=== PATIENT | female | born 1945 | race Caucasian/White ===

== ENCOUNTER 2024-10-13 11:18 | Observation (INO) | payer MEDICARE, SELFPAY ==
[2024-10-13] VITALS (16 sets, daily range): BP systolic 140–158; BP diastolic 61–76; PULSE 63–85; RESP 16–23; TEMP 36.4–36.7; O2SAT 96–98; BMI 24.9; BMI 24.0
--- NOTE | 2024-10-13 11:27 | PC.NURSE ---
Sent urine to the lab
[2024-10-13 11:33] LABS: Microscopic, Urine URINE MICROSCOPIC (MICROSCOPIC)
[2024-10-13 11:39] LABS: Appearance,Urine CLEAR (Clear); Bilirubin,Urine Negative (Negative); Blood, Urine Negative (Negative); Color,Urine YELLOW (Yellow); Glucose,Urine (UA) Negative (Negative); Ketones,Urine Negative (Negative); Leukocyte Esterase,Urine Negative (Negative); Nitrate,Urine Negative (Negative); PH,Urine 6.5 (5.0-8.5); Protein,Urine TRACE (Negative); Urobilinogen,Urine 0.2 EU/dl (0.2)
--- NOTE | 2024-10-13 11:42 | CT_ITS ---
PROCEDURE INFORMATION: Exam: CT Abdomen And Pelvis With Contrast Exam date and time: 10/13/2024 12:28 PM Age: 79 years old Clinical indication: Other: Severe llq pain TECHNIQUE: Imaging protocol: Computed tomography of the abdomen and pelvis with contrast. Radiation optimization: All CT scans at this facility use at least one of these dose optimization techniques: automated exposure control; mA and/or kV adjustment per patient size (includes targeted exams where dose is matched to clinical indication); or iterative reconstruction. Contrast material: ISOVUE; Contrast volume: 75 ml; Contrast route: IV; COMPARISON: No relevant prior studies available. FINDINGS: Lungs: Right lower lobe granuloma. Scattered atelectasis and scarring of the lung bases. Heart: See Vasculature finding. Coronary arteries: Heavy coronary calcified atherosclerotic disease. Liver: Normal. No mass. Gallbladder and biliary ducts: Status post cholecystectomy. Pancreas: Atrophy of the pancreas. Spleen: Normal. No splenomegaly. Adrenal glands: Nodular adrenal glands without definable mass. Kidneys and ureters: Mild thinning of the renal cortex bilaterally and diffusely. Benign bilateral renal cysts. Stomach and bowel: Long segment circumferential thickening of the distal ascending, transverse, descending colon. Inflammatory change of the pericolonic fat at the level of the distal ascending colon through the distal descending colon. Innumerable diverticula are noted throughout the colon. Appendix: No evidence of appendicitis. Intraperitoneal space: Unremarkable. No free air. No significant fluid collection. Vasculature: Heavy atherosclerotic disease extending into the major branches of the abdomen. Mitral and aortic annulus calcifications. Lymph nodes: Unremarkable. No enlarged lymph nodes. Urinary bladder: Unremarkable as visualized. Reproductive: Uterus appears absent. Bones/joints: Partially evaluated right total hip arthroplasty. Demineralized bones diffusely. Soft tissues: Anterior lower abdominal wall postsurgical change. Small fat containing umbilical hernia. IMPRESSION: Findings compatible with nonspecific colitis. Although there are numerous diverticula scattered throughout the colon, none of which appear to be a focus of inflammation to suggest diverticulitis at this time. COMMENTS: Consistent with the [employer]'s Incidental Findings Committee white paper (J Am Nani Radiol 2018): Any incidental renal lesion less than 1 cm or classified as too small to characterize, or any incidental cystic renal lesion characterized as simple-appearing, is likely benign. No follow-up imaging is recommended for these lesions per consensus recommendations based on imaging criteria.
--- NOTE | 2024-10-13 11:45 | ED_ITS ---
Discharge Plan Disposition Chief Complaint: Abdominal Pain Clinical Impressions Clinical Impression: Abdominal pain, LLQ Discharge ED Provider: Markell Eric General Adult HPI <Markell Eric MD - Last Filed: 10/13/24 14:47> General Chief complaint: Abdominal Pain Stated complaint: Severe Abd pain Time Seen by Provider: 10/13/24 11:20 History of Present Illness HPI narrative: Patient is a 79-year-old female who presents emergency department for evaluation of abdominal pain. She has recently had endoscopy and colonoscopy for evaluation of having infrequent bowel movements of undetermined etiology. She usually does not have abdominal pain however over the last 48 hours she has had severe left lower quadrant abdominal pain. Abdominal surgical history includes cholecystectomy and hysterectomy. 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 No breakthrough clots on anticoagulation. She tried a suppository the other day and had a little stool output, no blood. No dysuria reported no chest pain reported. Due to the severity of left lower quadrant pain she presents here for continued evaluation. Please note that above description of symptoms, in this electronic medical record under categorization of recalled from ER triage doctor by RN are reflective of an initial nursing assessment, however, is not reflective of my full history and physical exam that was personally taken and clarified. Consequentially, this preceding description of symptoms, which may include the patient's categorized chief complaint in the EMR, do not reflect my personal clinical impression, and the ultimate description of history of present illness and patient stated complaints should be deferred to this section of the note. Unless stated otherwise or congruent with this section of the note, additional signs, symptoms, or incongruence should be interpreted as inaccurate with my clinical impression. Related Data Home Medications ?Medication ?Instructions ?Recorded ?Confirmed apixaban 2.5 mg tablet (Eliquis) 2.5 mg PO BID 10/13/24 10/13/24 aspirin 81 mg tablet,delayed 81 mg PO DAILY 10/13/24 10/13/24 release benazepril 20 mg tablet 20 mg PO BID 10/13/24 10/13/24 estradiol 0.1 mg/24 hr semiweekly See Rx Instructions .Route .COMPLEX 10/13/24 10/13/24 transdermal patch (Minivelle) meclizine 25 mg chewable tablet 25 mg PO TID 10/13/24 10/13/24 ondansetron 4 mg disintegrating 8 mg translingual BID 10/13/24 10/13/24 tablet oxybutynin chloride 10 mg 10 mg PO DAILY 10/13/24 10/13/24 tablet,extended release 24 hr rabeprazole 20 mg tablet,delayed 20 mg PO DAILY 10/13/24 10/13/24 release Allergies Allergy/AdvReac Type Severity Reaction Status Date / Time No Known Allergies Allergy Verified 10/13/24 11:46 [facility] <Markell Eric MD - Last Filed: 10/13/24 14:47> [facility] Disclaimer: The information contained in this section may have been updated after the patient was seen, as this information can be updated by other users. Social History (Updated 10/13/24 @ 14:47 by Markell Eric MD) Smoking Status: Never smoker alcohol intake: never current occupational status: other Travel in the last 8 weeks: None Have you lived/traveled outside [place] in past 30 days?: No Contact w/someone who lives/traveled outside US past 30 days?: No Exposure to someone with infectious disease in past 14 days?: No Do you have a fever (greater than 100.4 F or 38 C)?: No Have you tested positive for COVID-19: No Exposed to someone with COVID-19 in past 14 days?: No Do you have a sore throat?: No Do you have a cough?: No Do you have any weakness?: No Do you have any diarrhea?: No Are you experiencing any unusual bleeding?: No Do you have any muscle aches/pain?: No Do you have any abdominal pain?: Yes Are you experiencing loss of taste or smell?: No <Markell Eric MD - Last Filed: 10/13/24 14:47> ROS Obtained: Yes Systems reviewed as appropriate & no additional complaints except as documented Physical Exam <Markell Eric MD - Last Filed: 10/13/24 14:47> General General appearance: alert and in no apparent distress Head Head exam: atraumatic and normocephalic Eye Eye exam: Present PERRL ENT ENT exam: Present mucous membranes moist Neck Neck exam: Present normal inspection Chest Chest inspection: Present normal inspection and symmetric chest wall rise Respiratory Respiratory exam: Present normal lung sounds bilaterally; Absent respiratory distress Cardiovascular Cardiovascular exam: Present regular rate and normal rhythm Abdominal Exam Abdominal exam: Present soft, tenderness (Left lower quadrant) and guarding (Voluntary); Absent rigidity Extremities Exam Extremities exam: Present normal inspection Neurological Exam Neurological exam: Present alert Psychiatric Psychiatric exam: Present normal affect Skin Skin exam: Present warm and dry Medical Decision Making <Markell Eric MD - Last Filed: 10/13/24 14:47> Medical Records Screening: Per USPSTF and CDC recommendations, given the prevalence of disease in our region, it is our hospital?s policy to screen for HIV and viral Hepatitis for all patients aged 18 and over and those with ongoing risk factors. Vance Inquiry Pt receiving controlled substance: No Vital Signs: 10/13/24 11:29 10/13/24 11:30 10/13/24 11:39 Temperature 98.1 F Temperature Source Oral Pulse Rate 75 72 Pulse Rate [Left] 73 Respiratory Rate 18 Blood Pressure 156/69 H 143/67 H Blood Pressure [Left Arm] 156/69 H Blood Pressure Mean [Left Arm] 98 Blood Pressure Source [Left Arm] Automatic Cuff Blood Pressure Position [Left Arm] Sitting 02 Sat by Pulse Oximetry 98 98 98 Oxygen Delivery Method Room Air Room Air Room Air 10/13/24 12:21 10/13/24 13:00 10/13/24 13:30 Temperature Temperature Source Pulse Rate 85 73 73 Pulse Rate [Left] Respiratory Rate 20 Blood Pressure 158/68 H 140/65 144/69 H Blood Pressure [Left Arm] Blood Pressure Mean [Left Arm] Blood Pressure Source [Left Arm] Blood Pressure Position [Left Arm] 02 Sat by Pulse Oximetry 98 97 98 Oxygen Delivery Method Room Air Room Air Room Air 10/13/24 14:00 10/13/24 15:00 10/13/24 16:00 Temperature Temperature Source Pulse Rate 67 65 63 Pulse Rate [Left] Respiratory Rate 16 20 21 Blood Pressure 151/76 H 145/65 H 152/67 H Blood Pressure [Left Arm] Blood Pressure Mean [Left Arm] Blood Pressure Source [Left Arm] Blood Pressure Position [Left Arm] 02 Sat by Pulse Oximetry 97 98 98 Oxygen Delivery Method Room Air Room Air Room Air 10/13/24 16:30 10/13/24 17:00 10/13/24 17:30 Temperature Temperature Source Pulse Rate 67 69 64 Pulse Rate [Left] Respiratory Rate 21 20 23 Blood Pressure 142/72 H 152/66 H 153/68 H Blood Pressure [Left Arm] Blood Pressure Mean [Left Arm] Blood Pressure Source [Left Arm] Blood Pressure Position [Left Arm] 02 Sat by Pulse Oximetry 98 97 97 Oxygen Delivery Method Room Air Room Air Room Air Lab Data Lab Results 10/13/24 11:26: Urine Color Yellow, Urine Appearance Clear, Urine pH 6.5, Ur Specific [place] 1.020, Urine Protein Trace, Urine Glucose (UA) Negative, Urine Ketones Negative, Urine Blood Negative, Urine Nitrate Negative, Urine Bilirubin Negative, Urine Urobilinogen 0.2, Ur Leukocyte Esterase Negative, Urine RBC None, Urine WBC 3-5, Ur Squamous Epith Cells 10-20, Urine Bacteria 2+ 10/13/24 11:45: WBC 17.8 H, RBC 4.63, Hgb 12.4, Hct 38.8, MCV 83.8, MCH 26.8 L, MCHC 32.0, RDW 14.2, Plt Count 287, MPV 12.0 H, Neut % (Auto) 89.8 H, Lymph % (Auto) 5.5 L, [place] % (Auto) 3.7, Eos % (Auto) 0.2, Baso % (Auto) 0.3, Neut # (Auto) 16.0 H, Lymph # (Auto) 1.0, [place] # (Auto) 0.7, Eos # (Auto) 0.0, Baso # (Auto) 0.1, Total Counted 100, Neutrophils % (Manual) 82 H, Band Neutrophils % 7.0, Lymphocytes % (Manual) 9 L, Monocytes % (Manual) 2, Platelet Estimate Normal, RBC Morphology Normal, Sodium 136, Potassium 3.8, Chloride 100, Carbon Dioxide 31 H, Anion Gap 8.8, BUN 18 H, Creatinine 0.70, Estimated Creat Clear 46, Estimated GFR 80, Est GFR ( Amer) 97, Glucose 199 H, Calcium 8.7, Total Bilirubin 0.4, AST 26, ALT 16, Alkaline Phosphatase 81, Total Protein 6.8, Albumin 3.9, Globulin 2.9, Albumin/Globulin Ratio 1.3, Lipase 74, HCV Ab PAOLO w/Rflx PCR Qn Negative, HIV Ag/Ab Combo Qual Negative 10/13/24 11:45 10/13/24 11:45 Orders (Tests/Meds): ED MEDICATIONS Generic Name Dose Route Start Last Admin Trade Name Bonita PRN Reason Stop Dose Admin Sodium Chloride 10 ml 10/13/24 14:23 10/13/24 14:24 Sodium Chloride 0.9% 10ml Syr (Rad Only) IV 11/12/24 14:22 10 ml NEEDED PRN Administration Maintain IV Site Discontinued Medications Generic Name Dose Route Start Last Admin Trade Name Bonita PRN Reason Stop Dose Admin Acetaminophen 1,000 mg 10/13/24 11:42 10/13/24 12:10 Acetaminophen 1,000mg/100ml Vial IV 10/13/24 11:43 1,000 mg ONCE ONE Administration Iopamidol 75 ml 10/13/24 12:33 10/13/24 12:34 Iopamidol-370 (76%);100ml Bottle IV 10/13/24 12:34 75 ml ONCE ONE Administration Iopamidol 80 ml 10/13/24 14:23 10/13/24 14:23 Iopamidol-370 (76%);100ml Bottle IV 10/13/24 14:24 80 ml ONCE ONE Administration Morphine Sulfate 4 mg 10/13/24 11:42 10/13/24 12:11 Morphine 4mg/Ml Syringe IV 10/13/24 11:43 4 mg ONCE ONE Administration Ondansetron HCl 4 mg 10/13/24 11:42 10/13/24 12:11 Ondansetron 4mg/2ml Vial IV 10/13/24 11:43 4 mg ONCE ONE Administration Sodium Chloride 10 ml 10/13/24 12:33 10/13/24 12:34 Sodium Chloride 0.9% 10ml Syr (Rad Only) IV 10/13/24 12:34 10 ml ONCE ONE Administration Sodium Chloride 50 ml 10/13/24 14:23 10/13/24 14:23 0.9 % Sodium Chloride 50 Ml Vial IV 10/13/24 14:24 50 ml ONCE ONE Administration ORDERS Category Date Time Status CT abdomen pelvis w con Stat Cat Scan 10/13/24 11:[address] angio abdomen pelvis Stat Cat Scan 10/13/24 14:06 Completed CBC w/Auto Diff [Complete Blood Count Auto Diff] Stat Lab 10/13/24 11:45 Completed CMP [Comprehensive Metabolic Panel] Stat Lab 10/13/24 11:45 Completed HIV Combo Stat Lab 10/13/24 11:45 Completed Hepatitis C Ab Qual. W/ RFX Stat Lab 10/13/24 11:45 Completed Lipase Stat Lab 10/13/24 11:45 Completed UA [Urinalysis and Microscopic] Stat Lab 10/13/24 11:26 Completed UA [Urinalysis and Microscopic] Stat Lab 10/13/24 11:47 Ordered Urine Culture Stat Micro 10/13/24 11:26 Received ECG Data Tracing #1: Independently interpreted by me rate is 72, rhythm is regular, axis is normal, inverted P waves in all leads suggest junctional rhythm or ectopic atrial foci. QTc 401, no ST elevation in anatomical contiguous leads. Medical Decision Narrative: In summary patient is 79-year-old female past medical history described above who presents emergency department for evaluation of left lower quadrant abdominal pain. Patient is hemodynamically stable and nontoxic-appearing arrival, afebrile appearing in pain. Differential diagnosis includes diverticulitis, stercoral colitis, among others. Workup will be conducted with hematologic labs, CT abdomen pelvis IV contrast. Initial inventions include multimodal pain control. Initial workup reviewed by me, leukocytosis 17.8 with left shift, no TANNER or critical electrolyte abnormality. Slightly elevated glucose without elevated anion gap urinalysis interpreted by me and not consistent with infection. CT imaging reviewed by me findings compatible with nonspecific colitis with numerous diverticula without evidence of diverticulitis. Upon reevaluating the patient she was resting in bed however upon questioning her she has had breakthrough clots while on anticoagulation although it was provoked. Given colitis along the ascending transverse and descending colon with pericolonic fat stranding given that ischemic colitis remains on the differential CTA will be obtained. CTA obtained and results pending at time of transition of care to the oncoming physician, Dr. Dumont. <Rach Dumont MD - Last Filed: 10/13/24 18:12> Medical Records Medical records reviewed: Yes I reviewed the patient's medical records. Vital Signs: 10/13/24 11:29 10/13/24 11:30 10/13/24 11:39 Temperature 98.1 F Temperature Source Oral Pulse Rate 75 72 Pulse Rate [Left] 73 Respiratory Rate 18 Blood Pressure 156/69 H 143/67 H Blood Pressure [Left Arm] 156/69 H Blood Pressure Mean [Left Arm] 98 Blood Pressure Source [Left Arm] Automatic Cuff Blood Pressure Position [Left Arm] Sitting 02 Sat by Pulse Oximetry 98 98 98 Oxygen Delivery Method Room Air Room Air Room Air 10/13/24 12:21 10/13/24 13:00 10/13/24 13:30 Temperature Temperature Source Pulse Rate 85 73 73 Pulse Rate [Left] Respiratory Rate 20 Blood Pressure 158/68 H 140/65 144/69 H Blood Pressure [Left Arm] Blood Pressure Mean [Left Arm] Blood Pressure Source [Left Arm] Blood Pressure Position [Left Arm] 02 Sat by Pulse Oximetry 98 97 98 Oxygen Delivery Method Room Air Room Air Room Air 10/13/24 14:00 10/13/24 15:00 10/13/24 16:00 Temperature Temperature Source Pulse Rate 67 65 63 Pulse Rate [Left] Respiratory Rate 16 20 21 Blood Pressure 151/76 H 145/65 H 152/67 H Blood Pressure [Left Arm] Blood Pressure Mean [Left Arm] Blood Pressure Source [Left Arm] Blood Pressure Position [Left Arm] 02 Sat by Pulse Oximetry 97 98 98 Oxygen Delivery Method Room Air Room Air Room Air 10/13/24 16:30 10/13/24 17:00 10/13/24 17:30 Temperature Temperature Source Pulse Rate 67 69 64 Pulse Rate [Left] Respiratory Rate 21 20 23 Blood Pressure 142/72 H 152/66 H 153/68 H Blood Pressure [Left Arm] Blood Pressure Mean [Left Arm] Blood Pressure Source [Left Arm] Blood Pressure Position [Left Arm] 02 Sat by Pulse Oximetry 98 97 97 Oxygen Delivery Method Room Air Room Air Room Air Lab Data Lab results reviewed: Yes I reviewed the patient's lab results. Lab Results 10/13/24 11:26: Urine Color Yellow, Urine Appearance Clear, Urine pH 6.5, Ur Specific [place] 1.020, Urine Protein Trace, Urine Glucose (UA) Negative, Urine Ketones Negative, Urine Blood Negative, Urine Nitrate Negative, Urine Bilirubin Negative, Urine Urobilinogen 0.2, Ur Leukocyte Esterase Negative, Urine RBC None, Urine WBC 3-5, Ur Squamous Epith Cells 10-20, Urine Bacteria 2+ 10/13/24 11:45: WBC 17.8 H, RBC 4.63, Hgb 12.4, Hct 38.8, MCV 83.8, MCH 26.8 L, MCHC 32.0, RDW 14.2, Plt Count 287, MPV 12.0 H, Neut % (Auto) 89.8 H, Lymph % (Auto) 5.5 L, [place] % (Auto) 3.7, Eos % (Auto) 0.2, Baso % (Auto) 0.3, Neut # (Auto) 16.0 H, Lymph # (Auto) 1.0, [place] # (Auto) 0.7, Eos # (Auto) 0.0, Baso # (Auto) 0.1, Total Counted 100, Neutrophils % (Manual) 82 H, Band Neutrophils % 7.0, Lymphocytes % (Manual) 9 L, Monocytes % (Manual) 2, Platelet Estimate Normal, RBC Morphology Normal, Sodium 136, Potassium 3.8, Chloride 100, Carbon Dioxide 31 H, Anion Gap 8.8, BUN 18 H, Creatinine 0.70, Estimated Creat Clear 46, Estimated GFR 80, Est GFR ( Amer) 97, Glucose 199 H, Calcium 8.7, Total Bilirubin 0.4, AST 26, ALT 16, Alkaline Phosphatase 81, Total Protein 6.8, Albumin 3.9, Globulin 2.9, Albumin/Globulin Ratio 1.3, Lipase 74, HCV Ab PAOLO w/Rflx PCR Qn Negative, HIV Ag/Ab Combo Qual Negative Orders (Tests/Meds): ED MEDICATIONS Generic Name Dose Route Start Last Admin Trade Name Freq PRN Reason Stop Dose Admin Sodium Chloride 10 ml 10/13/24 14:23 10/13/24 14:24 Sodium Chloride 0.9% 10ml Syr (Rad Only) IV 11/12/24 14:22 10 ml NEEDED PRN Administration Maintain IV Site Discontinued Medications Generic Name Dose Route Start Last Admin Trade Name Freq PRN Reason Stop Dose Admin Acetaminophen 1,000 mg 10/13/24 11:42 10/13/24 12:10 Acetaminophen 1,000mg/100ml Vial IV 10/13/24 11:43 1,000 mg ONCE ONE Administration Iopamidol 75 ml 10/13/24 12:33 10/13/24 12:34 Iopamidol-370 (76%);100ml Bottle IV 10/13/24 12:34 75 ml ONCE ONE Administration Iopamidol 80 ml 10/13/24 14:23 10/13/24 14:23 Iopamidol-370 (76%);100ml Bottle IV 10/13/24 14:24 80 ml ONCE ONE Administration Morphine Sulfate 4 mg 10/13/24 11:42 10/13/24 12:11 Morphine 4mg/Ml Syringe IV 10/13/24 11:43 4 mg ONCE ONE Administration Ondansetron HCl 4 mg 10/13/24 11:42 10/13/24 12:11 Ondansetron 4mg/2ml Vial IV 10/13/24 11:43 4 mg ONCE ONE Administration Sodium Chloride 10 ml 10/13/24 12:33 10/13/24 12:34 Sodium Chloride 0.9% 10ml Syr (Rad Only) IV 10/13/24 12:34 10 ml ONCE ONE Administration Sodium Chloride 50 ml 10/13/24 14:23 10/13/24 14:23 0.9 % Sodium Chloride 50 Ml Vial IV 10/13/24 14:24 50 ml ONCE ONE Administration ORDERS Category Date Time Status CT abdomen pelvis w con Stat Cat Scan 10/13/24 11:[address] angio abdomen pelvis Stat Cat Scan 10/13/24 14:06 Completed CBC w/Auto Diff [Complete Blood Count Auto Diff] Stat Lab 10/13/24 11:45 Completed CMP [Comprehensive Metabolic Panel] Stat Lab 10/13/24 11:45 Completed HIV Combo Stat Lab 10/13/24 11:45 Completed Hepatitis C Ab Qual. W/ RFX Stat Lab 10/13/24 11:45 Completed Lipase Stat Lab 10/13/24 11:45 Completed UA [Urinalysis and Microscopic] Stat Lab 10/13/24 11:26 Completed UA [Urinalysis and Microscopic] Stat Lab 10/13/24 11:47 Ordered Urine Culture Stat Micro 10/13/24 11:26 Received Medical Decision Narrative: In summary patient is 79-year-old female past medical history described above who presents emergency department for evaluation of left lower quadrant abdominal pain. Patient is hemodynamically stable and nontoxic-appearing arrival, afebrile appearing in pain. Differential diagnosis includes diverticulitis, stercoral colitis, among others. Workup will be conducted with hematologic labs, CT abdomen pelvis IV contrast. Initial inventions include multimodal pain control. Initial workup reviewed by me, leukocytosis 17.8 with left shift, no TANNER or critical electrolyte abnormality. Slightly elevated glucose without elevated anion gap urinalysis interpreted by me and not consistent with infection. CT imaging reviewed by me findings compatible with nonspecific colitis with numerous diverticula without evidence of diverticulitis. Upon reevaluating the patient she was resting in bed however upon questioning her she has had breakthrough clots while on anticoagulation although it was provoked. Given colitis along the ascending transverse and descending colon with pericolonic fat stranding given that ischemic colitis remains on the differential CTA will be obtained. CTA obtained and results pending at time of transition of care to the oncoming physician, Dr. Dumont. Tim: On my evaluation of the CTA abdomen/pelvis, no ischemic changes noted to suggest mesenteric ischemia. On reevaluation, patient's abdominal pain is returning. Patient family concerned about pain level and being able to tolerate at home. With patient's significant leukocytosis, pancolitis and significant pain, will discuss with hospitalist for admission. After discussing the patient with the hospitalist, he was in agreement for admission. Patient admitted in stable condition. Rach Dumont MD Critical Care <Markell Eric MD - Last Filed: 10/13/24 14:47> Critical Care Time Critical Care Time: No
[2024-10-13 12:00] LABS: Albumin Level 3.9 g/dl (3.5-5.0); Chloride 100 mmol/L (98-107); Potassium 3.8 mmoL/L (3.5-5.1); Sodium 136 mmol/L (136-145)
[2024-10-13 12:02] LABS: Alanine Aminotransferase 16 U/L (12-78); Anion Gap 8.8 mEq/L (5-15); Aspartate Amino Transferase 26 U/L (14-36); Blood Urea Nitrogen 18 mg/dl (7-17); Carbon Dioxide 31 mmol/L (22.0-30.0); Creatinine Clearance Estimated 46 mL/min (50-200); Estimated Glomerular Filt Rate 80 ml/min (>60); GFR (African American) 97 ML/MIN (>60)
[2024-10-13 12:03] LABS: Albumin/Globulin Ratio 1.3 (1.1-1.8); Alkaline Phosphatase 81 U/L (38-126); Bilirubin,Total 0.4 mg/dl (0.2-1.3); Calcium 8.7 mg/dl (8.4-10.2); Globulin 2.9 g/dL (1.3-3.2); Glucose 199 mg/dl (74-100); Lipase 74 U/L (23-300); Total Protein,Serum 6.8 g/dl (6.3-8.2)
[2024-10-13 12:10] LABS: Bacteria,Urine 2+ /lpf
[2024-10-13] MEDS: ACETAMINOPHEN 1,000MG/100ML VIAL 1000 MG IV (12:10)
[2024-10-13] MEDS: MORPHINE 4MG/ML SYRINGE 4 MG IV (12:11)
[2024-10-13] MEDS: ONDANSETRON 4MG/2ML VIAL 4 MG IV (12:11)
--- NOTE | 2024-10-13 12:11 | PC.NURSE ---
pt ambulated to bathroom, pt had a bm with some bright red blood noted, pt reports feeling better after this. notified
[2024-10-13 12:16] LABS: Basophils # 0.1 K/mm3 (0-0.2); Basophils % 0.3 % (0.1-2.0); Eosinophils % 0.2 % (0.1-12.0); Hematocrit 38.8 % (37.0-47.0); Hemoglobin 12.4 g/dL (12.2-16.2); Lymphocytes % 5.5 % (10-50); Mean Corpuscular Hemoglobin 26.8 pg (27.0-31.2); Mean Corpuscular Volume 83.8 fl (81-99); Monocytes # 0.7 K/mm3 (0.1-1.0); Monocytes % 3.7 % (1.7-9.3); Neutrophils % 89.8 % (37.0-80.0); Platelet Count 287 K/mm3 (142-424); Red Blood Count 4.63 M/mm3 (4.20-5.40); Red Cell Distribution Width 14.2 % (11.5-17.5); White Blood Count 17.8 K/mm3 (4.8-10.8)
[2024-10-13 12:32] LABS: MANUAL DIFFERENTIAL MANUAL DIFFERENTIAL (MANUAL DIFF)
[2024-10-13] MEDS: IOPAMIDOL-370 (76%);100ML BOTTLE 75 ML IV (12:34)
[2024-10-13] MEDS: SODIUM CHLORIDE 0.9% 10ML SYR (RAD ONLY) 10 ML IV ×2 (12:34→14:24)
--- NOTE | 2024-10-13 13:17 | PC.NURSE ---
Pts family notified the staff the pt is c/o chest pain. EC RN went bedside to assess the pt. Tech went bedside to do an EKG. notified. no new orders received. no other new complaints. call beckman in reach.
--- NOTE | 2024-10-13 13:22 | ECG_ITS ---
APPROVED REPORT Exam: Resting ECG HR:72 bpm ECG Measurements Heart Rate 72 AXES FL 128 P 269 QRSd 78 QRS -10 QT 377 T 70 QTc 401 Conclusion JUNCTIONAL RHYTHM ABNORMAL RHYTHM ECG UNCONFIRMED REPORT Electronically signed by : VIKTOR METCALF, 10/14/2024 23:14:19
[2024-10-13 13:35] LABS: HIV Combo NEGATIVE (Negative)
[2024-10-13 13:42] LABS: Hepatitis C Ab Qual. W/ RFX NEGATIVE (Negative)
--- NOTE | 2024-10-13 14:06 | CT_ITS ---
PROCEDURE INFORMATION: Exam: CTA Abdomen and Pelvis With Contrast Exam date and time: 10/13/2024 2:24 PM Age: 79 years old Clinical indication: Other: Concern for ischemic colitis TECHNIQUE: Imaging protocol: Computed tomographic angiography of the abdomen and pelvis with contrast. Exam focused on the arteries. 3D rendering (Not supervised by radiologist): MIP and/or 3D reconstructed images were created by the technologist. Radiation optimization: All CT scans at this facility use at least one of these dose optimization techniques: automated exposure control; mA and/or kV adjustment per patient size (includes targeted exams where dose is matched to clinical indication); or iterative reconstruction. Contrast material: ISOVUE 370; Contrast volume: 80 ml; Contrast route: INTRAVENOUS (IV); COMPARISON: CT ABDOMEN PELVIS W CON 09/16/2024 12:28 FINDINGS: Lungs: Calcified right lower lobe granuloma. Aorta: No aortic aneurysm. No aortic dissection. Celiac trunk and mesenteric arteries: No occlusion or significant stenosis. Renal arteries: No occlusion or significant stenosis. Right iliac arteries: No occlusion or significant stenosis. Left iliac arteries: No occlusion or significant stenosis. Other findings: Atherosclerosis. Liver: No mass. Gallbladder and biliary ducts: Cholecystectomy. Pancreas: Somewhat atrophic pancreas. Spleen: Unremarkable. No splenomegaly. Adrenal glands: Bilateral adrenal gland thickening without discrete mass. Kidneys and ureters: Bilateral kidney cortical thinning. 4.2 cm simple appearing right kidney cyst and 1.2 cm simple appearing left kidney cyst. Stomach and bowel: Wall thickening of the distal ascending, transverse and descending colon. Inflammatory stranding around the descending colon. Extensive pancolonic diverticula. No pneumatosis. Appendix: No evidence of appendicitis. Intraperitoneal space: Unremarkable. No free air. No significant fluid collection. Lymph nodes: Unremarkable. No enlarged lymph nodes. Urinary bladder: Clips adjacent to the urinary bladder. Reproductive: Hysterectomy. Bones/joints: Osteopenia. Degenerative changes of the spine. Right hip arthroplasty. Soft tissues: Unremarkable. IMPRESSION: 1. Atherosclerosis. No high-grade arterial stenosis or occlusion. 2. Nonspecific colitis, which does not appear to be secondary to diverticulitis. Infectious or inflammatory etiologies are favored. 3. Additional chronic/nonemergent findings as detailed above.
[2024-10-13] MEDS: 0.9 % SODIUM CHLORIDE 50 ML VIAL IV (14:23)
[2024-10-13] MEDS: IOPAMIDOL-370 (76%);100ML BOTTLE 80 ML IV (14:23)
[2024-10-13 15:09] LABS: Lymphocytes % 9 % (10-50); Monocytes % 2 % (2-9); Neutrophils % 82 % (42-76); RBC Morphology Normal; Total Cells Counted 100
[2024-10-13 15:10] LABS: Platelet Estimate Normal
--- NOTE | 2024-10-13 16:02 | PC.NURSE ---
rounded on patient at this time, voiced no concerns at this time
--- NOTE | 2024-10-13 18:00 | PC.NURSE ---
call made to material handling warehouse supervisor for bed placement
--- NOTE | 2024-10-13 18:11 | PC.NURSE ---
report given to Telma CHOU
--- NOTE | 2024-10-13 18:29 | PC.NURSE ---
I went bedside and spoke with the family about the pt being admitted for colitis. Med/surg staff is here to take the pt to her admission room.
--- NOTE | 2024-10-13 18:34 | PC.NURSE ---
arrived by w/c from ED
[2024-10-13] MEDS: LACTATED RINGERS 1000ML 1,000 ML 75 ML IV (19:12)
[2024-10-13] MEDS: PIPERCILLIN/TAZO 3.375 GM in 0.9 % SODIUM CHLORIDE 50 ML IV (19:13)
[2024-10-13 19:43] LABS: Lactic Acid 0.9 mmol/L (0.7-2.1)
[2024-10-13] MEDS: PATIENT'S OWN HOME MEDICATION (Apixaban [Eliquis] 2.5 mg tablet) 2.5 EACH PO (20:58)
[2024-10-13] MEDS: MORPHINE 2MG/ML SYRINGE 2 MG IV (20:58)
[2024-10-13] MEDS: PANTOPRAZOLE 40MG TABLET 40 MG PO (20:58)
--- NOTE | 2024-10-13 21:12 | PC.NURSE ---
Hospitalist was notified at this time about oxybutynin order (entered as twice a day in the MAR). The patient stated that she only takes this medication once a day and in the morning time. Medication was documented as not given in the MAR, and it was not administered.
--- NOTE | 2024-10-13 22:02 | P.HP_ITS ---
<Statement entered by Bryson Cabezas MD - 10/14/24 22:59> Personally evaluated patient and agree with plan of care as outlined by the [facility]. 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 She denies baseline abdominal pain, reporting this as a new, severe symptom. She used a suppository 2 days ago with minimal stool output (no blood) and denies dysuria or chest pain. Her son clarified a history of breakthrough clots while on anticoagulation, noted during reevaluation, though initially reported as absent. On arrival, she was hemodynamically stable, afebrile, and nontoxic-appearing but in visible pain. My exam confirmed severe left lower quadrant tenderness without rebound or guarding. Labs showed leukocytosis (WBC 17.8, 89.8% neutrophils, 7% bands), glucose 199, and normal renal function (Cr 0.70, eGFR 80). Urinalysis was unremarkable for infection (negative nitrates/leukocytes, 2+ bacteria likely contamination). Initial CT abdomen/pelvis with IV contrast revealed nonspecific colitis (ascending, transverse, descending colon) with numerous diverticula but no diverticulitis or perforation, and pericolonic fat stranding. Given ischemic colitis risk (anticoagulation, clot history), a CTA abdomen/pelvis was obtained, reviewed by Dr. Dumont, showing no mesenteric ischemia. Differential diagnosis included nonspecific colitis, possible ischemic colitis (ruled out), and stercoral colitis (less likely without obstipation). ED interventions included multimodal pain control. Reevaluation by Dr. Dumont noted recurrent pain and family concerns about home tolerability. Given significant leukocytosis, pancolitis on imaging, and uncontrolled pain in an elderly patient with anticoagulation history, admission to hospital medicine was deemed necessary. After discussion, the patient was admitted in stable condition for further management. [facility] Disclaimer: The information contained in this section may have been updated after the patient was seen, as this information can be updated by other users. Medical History Deep vein thrombosis (DVT) History of gastroesophageal reflux (GERD) Hypertension Surgical History History of hysterectomy History of cholecystectomy Social History Smoking Status: Never smoker alcohol intake: never current occupational status: other Travel in the last 8 weeks: None Have you lived/traveled outside [place] in past 30 days?: No Contact w/someone who lives/traveled outside [place] past 30 days?: No Exposure to someone with infectious disease in past 14 days?: No Do you have a fever (greater than 100.4 F or 38 C)?: No Have you tested positive for COVID-19: No Exposed to someone with COVID-19 in past 14 days?: No Do you have a sore throat?: No Do you have a cough?: No Do you have any weakness?: No Do you have any diarrhea?: No Are you experiencing any unusual bleeding?: No Do you have any muscle aches/pain?: No Do you have any abdominal pain?: Yes Are you experiencing loss of taste or smell?: No Other Medical History Have you received the Flu Vaccine for this season: Yes Have you received the Pneumonia Vaccine: Yes Review of Systems Review of Systems Review of systems (narrative): 13 point review of systems negative except as listed in HPI Meds Home Medications and Allergies Home Medications ?Medication ?Instructions ?Recorded ?Confirmed ?Type apixaban 2.5 mg tablet (Eliquis) 2.5 mg PO BID 10/13/24 10/13/24 History aspirin 81 mg tablet,delayed 81 mg PO DAILY 10/13/24 10/13/24 History release benazepril 20 mg tablet 20 mg PO BID 10/13/24 10/13/24 History estradiol 0.1 mg/24 hr semiweekly 0.1 mg transdermal WEEKLY 10/13/24 10/13/24 History transdermal patch (Minivelle) meclizine 25 mg chewable tablet 25 mg PO TID 10/13/24 10/13/24 History ondansetron 4 mg disintegrating 8 mg translingual BID 10/13/24 10/13/24 History tablet oxybutynin chloride 10 mg 10 mg PO DAILY 10/13/24 10/13/24 History tablet,extended release 24 hr rabeprazole 20 mg tablet,delayed 20 mg PO DAILY 10/13/24 10/13/24 History release New Prescriptions to Start Prescriptions: Allergies Allergy/AdvReac Type Severity Reaction Status Date / Time No Known Allergies Allergy Verified 10/13/24 11:46 Exam Data for Last 24 hours Vital signs and Labs for Last 24 Hours: Temp Pulse Resp BP Pulse Ox O2 Del Method 97.5 F L 65 18 149/66 H 98 Room Air 10/13/24 19:38 10/13/24 20:00 10/13/24 20:00 10/13/24 19:38 10/13/24 20:00 10/13/24 21:00 Laboratory Results - last 24 hr 10/13/24 11:26: Urine Color Yellow, Urine Appearance Clear, Urine pH 6.5, Ur Specific [place] 1.020, Urine Protein Trace, Urine Glucose (UA) Negative, Urine Ketones Negative, Urine Blood Negative, Urine Nitrate Negative, Urine Bilirubin Negative, Urine Urobilinogen 0.2, Ur Leukocyte Esterase Negative, Urine RBC None, Urine WBC 3-5, Ur Squamous Epith Cells 10-20, Urine Bacteria 2+ 10/13/24 11:45: WBC 17.8 H, RBC 4.63, Hgb 12.4, Hct 38.8, MCV 83.8, MCH 26.8 L, MCHC 32.0, RDW 14.2, Plt Count 287, MPV 12.0 H, Neut % (Auto) 89.8 H, Lymph % (Auto) 5.5 L, [place] % (Auto) 3.7, Eos % (Auto) 0.2, Baso % (Auto) 0.3, Neut # (Auto) 16.0 H, Lymph # (Auto) 1.0, [place] # (Auto) 0.7, Eos # (Auto) 0.0, Baso # (Auto) 0.1, Total Counted 100, Neutrophils % (Manual) 82 H, Band Neutrophils % 7.0, Lymphocytes % (Manual) 9 L, Monocytes % (Manual) 2, Platelet Estimate Normal, RBC Morphology Normal, Sodium 136, Potassium 3.8, Chloride 100, Carbon Dioxide 31 H, Anion Gap 8.8, BUN 18 H, Creatinine 0.70, Estimated Creat Clear 46, Estimated GFR 80, Est GFR ( Amer) 97, Glucose 199 H, Calcium 8.7, Total Bilirubin 0.4, AST 26, ALT 16, Alkaline Phosphatase 81, Total Protein 6.8, Albumin 3.9, Globulin 2.9, Albumin/Globulin Ratio 1.3, Lipase 74, HCV Ab PAOLO w/Rflx PCR Qn Negative, HIV Ag/Ab Combo Qual Negative 10/13/24 19:25: Lactate 0.9 I & O for Last 24 hours: Intake & Output 10/10/24 10/11/24 10/12/24 10/13/24 23:59 23:59 23:59 23:59 Output Total 0 / 0 Balance 0 / 0 Weight 63.73 kg Constitutional Constitutional: no acute distress *Routine HEENT Exam Head: Present normocephalic Eye: Present EOMI and PERRL ENT: Present mucous membranes moist *Routine Neck Exam Neck: Present supple; Absent lymphadenopathy *Routine Respiratory Exam Respiratory: Present CTA bilaterally *Routine Cardiovascular Exam Cardiovascular: Present RRR *Routine Abdominal Exam Abdominal: Present soft and normoactive bowel sounds; Absent tenderness *Routine Rectal Exam Rectal:: deferred *Routine Genitalia Exam Genitalia:: deferred *Routine Extremities Exam Extremities: Absent cyanosis, clubbing or edema *Routine Skin Exam Skin: Present warm; Absent rash *Routine Neurological Exam Neurological: Present alert and oriented X3 Assessment and Plan *Assessment and plan (1) Abdominal pain, LLQ: Status: Acute Category: Medical Code(s): R10.32 - Left lower quadrant pain (2) Colitis: Status: Acute Category: Medical Code(s): K52.9 - Noninfective gastroenteritis and colitis, unspecified Plan * Nonspecific colitis * Pertinent Info: Severe LLQ pain x 48h, CT abdomen/pelvis showing pancolitis (ascending, transverse, descending) with diverticula and pericolonic fat stranding, no diverticulitis or perforation. CTA negative for mesenteric ischemia. WBC 17.8 with left shift (89.8% neutrophils, 7% bands) suggests inflammation, possibly infectious or ischemic (ruled out). No fever, nontoxic-appearing. Recent suppository use with minimal output; chronic constipation history. * Zosyn for broad-spectrum coverage of possible infectious colitis * Order stool studies: C. difficile toxin, culture, O&P to identify etiology. * IV fluids (NS 100 mL/h) to maintain hydration; monitor for dehydration given pain-limiting intake. * Hold rabeprazole (PPI) to reduce C. diff risk; switch to famotidine 20 mg PO BID if GERD symptoms arise. * Repeat CT abdomen/pelvis in 48h if no improvement or pain worsens to assess progression. * GI consult for possible repeat colonoscopy if etiology unclear post-stool studies. * Abdominal pain (severe, recurrent) * Pertinent Info: LLQ tenderness on exam, recurrent despite ED pain control (specifics unavailable). Home meds include ondansetron 8 mg BID (likely PRN dosing error in EMR; clarified as 4 mg BID PRN). * Multimodal pain control: Acetaminophen 650 mg PO q6h scheduled, morphine 2- 4 mg IV q4h PRN for severe pain (start low given age). * Avoid NSAIDs due to anticoagulation (apixaban) and GI inflammation. * Ondansetron 4 mg PO/IV q8h PRN nausea (adjust home 8 mg BID to standard dosing). * Monitor pain response q4h; escalate to [employer] if uncontrolled. * Leukocytosis with left shift * Pertinent Info: WBC 17.8, 89.8% neutrophils, 7% bands; no fever or hemodynamic instability. Likely reactive to colitis; sepsis less likely (lacking SIRS criteria beyond WBC). * Blood cultures x2 to rule out occult bacteremia. * Trend CBC q24h; expect downtrend with colitis treatment. 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 CTA rules out acute mesenteric ischemia. Leukocytosis and pain raise emboli concern, but imaging negative. * Continue apixaban 2.5 mg BID; check anti-Xa level to confirm therapeutic dosing. * Hold aspirin 81 mg daily (redundant with apixaban, increases GI bleed risk with colitis). * D-dimer if new clot symptoms emerge (e.g., leg swelling, hypoxia); US Doppler PRN. * Hematology consult if anti-Xa subtherapeutic or clot history unclear. * Hyperglycemia * Pertinent Info: Glucose 199, no anion gap elevation (8.8), no diabetes history provided. Likely stress response to pain/inflammation. * Monitor glucose q6h; sliding scale insulin (e.g., lispro 2-4 units SC q6h PRN >200) if persistent. * Recheck fasting glucose tomorrow to assess baseline. * Chronic constipation * Pertinent Info: Recent endoscopy/colonoscopy for infrequent BMs, suppository use with minimal output. Colitis may exacerbate; no obstruction on CT. * Start polyethylene glycol 17 g PO daily once pain controlled; hold if diarrhea develops. * Assess home bowel regimen (none listed); add senna 8.6 mg PO BID PRN if needed. * Home medications management * Apixaban 2.5 mg BID: Continue (see above). * Aspirin 81 mg daily * Benazepril 20 mg BID: Continue; monitor BP q6h, hold if SBP <100. * Estradiol 0.1 mg/24h patch: Continue unless GI bleed risk rises. * Meclizine 25 mg TID: Hold unless dizziness reported (proactive PRN use unclear). * Oxybutynin 10 mg ER daily: Continue; monitor for anticholinergic effects (e.g., confusion). * Rabeprazole 20 mg daily: Hold (see colitis). * Supportive care * NPO initially due to pain; advance to clear liquids as tolerated. * DVT prophylaxis not needed (on apixaban). * Strict I/Os, daily weights for fluid status. * Family (son) updated; confirm clot history further if possible. Disposition: The patient will be admitted to the medical floor under the hospitalist service for management of nonspecific pancolitis, severe abdominal pain, and leukocytosis, with monitoring for anticoagulation efficacy and constipation. She requires inpatient care for antibiotics
[2024-10-14] VITALS: BP 135/64; PULSE 69; RESP 16; TEMP 36.7; O2SAT 97
[2024-10-14] MEDS: ACETAMINOPHEN 325MG TAB 650 MG PO (02:30)
[2024-10-14 04:00] VITALS: BP 110/51; PULSE 56; RESP 17; TEMP 36.7; O2SAT 94; BMI 24.6
--- NOTE | 2024-10-14 04:40 | PC.NURSE ---
Patient is alert and oriented x4. Patient was observed to have wakeful periods and resting periods (eyes closed, respirations even/unlabored on room air) throughout the night. She has been ambulating with standby assistance + rolling walker in her room/to the bathroom. She has had one bowel movement this shift and has continued passing gas. A little abdominal relief was reported by the patient after defecation + passing flatulence. Thus far, the patient has not had another bowel movement; stool sample was not able to be collected this shift due to it being ordered after occurrence of bowel movement (occurred around 21:00, diarrhea panel ordered at 23:42). Her abdominal pain, particularly on the left side, has been treated with morphine and Tylenol this shift per MAR. Scheduled medications were administered as appropriately per OCT. Lactated Ringers are infusing at 75 mL/hr. Upon auscultation of her bowels, hypoactive sounds were heard throughout. Abdomen was soft and tender with palpation. Auscultation of her lungs and heart were within normal findings. At this time, the patient is resting in bed without any further complaints. No new needs. Bed alarm on. Call light within reach.
[2024-10-14] MEDS: PIPERCILLIN/TAZO 3.375 GM in 0.9 % SODIUM CHLORIDE 50 ML IV ×3 (06:00→12:43)
[2024-10-14 07:10] LABS: Basophils % 0.3 % (0.1-2.0); Eosinophils # 0.1 K/mm3 (0.0-0.4); Hematocrit 37.6 % (37.0-47.0); Hemoglobin 11.7 g/dL (12.2-16.2); Lymphocytes # 1.6 K/mm3 (0.7-4.5); Lymphocytes % 12.5 % (10-50); Mean Corpuscular HGB Conc 31.1 g/dL (31.8-35.4); Mean Corpuscular Hemoglobin 25.9 pg (27.0-31.2); Mean Corpuscular Volume 83.4 fl (81-99); Mean Platelet Volume 12.3 fl (7.4-10.4); Monocytes # 0.7 K/mm3 (0.1-1.0); Monocytes % 5.5 % (1.7-9.3); Neutrophils # 10.4 K/mm3 (1.8-7.8); Neutrophils % 80.4 % (37.0-80.0); Platelet Count 267 K/mm3 (142-424); Red Blood Count 4.51 M/mm3 (4.20-5.40); Red Cell Distribution Width 14.4 % (11.5-17.5); White Blood Count 12.9 K/mm3 (4.8-10.8)
[2024-10-14 07:32] VITALS: BP 110/61; PULSE 67; RESP 18; TEMP 36.8; O2SAT 98
[2024-10-14 07:39] LABS: Alanine Aminotransferase 31 U/L (12-78); Albumin Level 3.4 g/dl (3.5-5.0); Albumin/Globulin Ratio 1.2 (1.1-1.8); Alkaline Phosphatase 83 U/L (38-126); Anion Gap 5.7 mEq/L (5-15); Aspartate Amino Transferase 55 U/L (14-36); Bilirubin,Total 0.5 mg/dl (0.2-1.3); Blood Urea Nitrogen 13 mg/dl (7-17); Calcium 8.2 mg/dl (8.4-10.2); Carbon Dioxide 31 mmol/L (22.0-30.0); Chloride 104 mmol/L (98-107); Creatinine Clearance Estimated 46 mL/min (50-200); Estimated Glomerular Filt Rate 80 ml/min (>60); GFR (African American) 97 ML/MIN (>60); Globulin 2.8 g/dL (1.3-3.2); Glucose 88 mg/dl (74-100); Magnesium 1.9 mg/dl (1.6-2.3); Potassium 3.7 mmoL/L (3.5-5.1); Sodium 137 mmol/L (136-145); Total Protein,Serum 6.2 g/dl (6.3-8.2)
--- NOTE | 2024-10-14 08:09 | HMH.PHAINT1 ---
Pharmacy Intervention Comments: MEDICATION RECONCILIATION COMPLETED ON PATIENT USING EXTERNAL FILL HISTORY FROM PHARMACY. -CELI GOLD, ULISESD
[2024-10-14] MEDS: LISINOPRIL 20MG TABLET 20 MG PO (08:13)
[2024-10-14] MEDS: APIXABAN 5MG TABLET 2.5 MG PO (08:13)
[2024-10-14] MEDS: ASPIRIN EC 81MG TABLET 81 MG PO (08:13)
[2024-10-14] MEDS: OXYBUTYNIN 5MG TAB 5 MG PO (08:13)
[2024-10-14] MEDS: LACTATED RINGERS 1000ML 1,000 ML 75 ML IV (08:14)
--- NOTE | 2024-10-14 11:50 | EXP.DC.SUM ---
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 She denies baseline abdominal pain, reporting this as a new, severe symptom. She used a suppository 2 days ago with minimal stool output (no blood) and denies dysuria or chest pain. Her son clarified a history of breakthrough clots while on anticoagulation, noted during reevaluation, though initially reported as absent. On arrival, she was hemodynamically stable, afebrile, and nontoxic-appearing but in visible pain. My exam confirmed severe left lower quadrant tenderness without rebound or guarding. Labs showed leukocytosis (WBC 17.8, 89.8% neutrophils, 7% bands), glucose 199, and normal renal function (Cr 0.70, eGFR 80). Urinalysis was unremarkable for infection (negative nitrates/leukocytes, 2+ bacteria likely contamination). Initial CT abdomen/pelvis with IV contrast revealed nonspecific colitis (ascending, transverse, descending colon) with numerous diverticula but no diverticulitis or perforation, and pericolonic fat stranding. Given ischemic colitis risk (anticoagulation, clot history), a CTA abdomen/pelvis was obtained, reviewed by Dr. Dumont, showing no mesenteric ischemia. Differential diagnosis included nonspecific colitis, possible ischemic colitis (ruled out), and stercoral colitis (less likely without obstipation). ED interventions included multimodal pain control. Reevaluation by Dr. Dumont noted recurrent pain and family concerns about home tolerability. Given significant leukocytosis, pancolitis on imaging, and uncontrolled pain in an elderly patient with anticoagulation history, admission to hospital medicine was deemed necessary. After discussion, the patient was admitted in stable condition for further management. Hospital Course Hospital Course Hospital Course: Eun Deluca is a 79-year-old female who presented with left lower quadrant pain and was admitted for nonspecific colitis. #Left lower quadrant abdominal pain #Nonspecific colitis ? Seen on CT abdomen/pelvis. Initial WBC 17.8. No signs of sepsis. ? Improved with Zosyn for 1 day. ? Discharged with ciprofloxacin, metronidazole for 9 more days. 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 #Hypertension ? Will continue home benazepril. Exam Data for Last 24 hours Vital signs and Labs for Last 24 Hours: Temp Pulse Resp BP Pulse Ox O2 Del Method 98.2 F 67 18 110/61 98 Room Air 10/14/24 07:32 10/14/24 07:32 10/14/24 07:32 10/14/24 07:32 10/14/24 07:32 10/14/24 09:00 Laboratory Results - last 24 hr 10/13/24 11:26: Urine Color Yellow, Urine Appearance Clear, Urine pH 6.5, Ur Specific [place] 1.020, Urine Protein Trace, Urine Glucose (UA) Negative, Urine Ketones Negative, Urine Blood Negative, Urine Nitrate Negative, Urine Bilirubin Negative, Urine Urobilinogen 0.2, Ur Leukocyte Esterase Negative, Urine RBC None, Urine WBC 3-5, Ur Squamous Epith Cells 10-20, Urine Bacteria 2+ 10/13/24 11:45: WBC 17.8 H, RBC 4.63, Hgb 12.4, Hct 38.8, MCV 83.8, MCH 26.8 L, MCHC 32.0, RDW 14.2, Plt Count 287, MPV 12.0 H, Neut % (Auto) 89.8 H, Lymph % (Auto) 5.5 L, [place] % (Auto) 3.7, Eos % (Auto) 0.2, Baso % (Auto) 0.3, Neut # (Auto) 16.0 H, Lymph # (Auto) 1.0, [place] # (Auto) 0.7, Eos # (Auto) 0.0, Baso # (Auto) 0.1, Total Counted 100, Neutrophils % (Manual) 82 H, Band Neutrophils % 7.0, Lymphocytes % (Manual) 9 L, Monocytes % (Manual) 2, Platelet Estimate Normal, RBC Morphology Normal, Sodium 136, Potassium 3.8, Chloride 100, Carbon Dioxide 31 H, Anion Gap 8.8, BUN 18 H, Creatinine 0.70, Estimated Creat Clear 46, Estimated GFR 80, Est GFR ( Amer) 97, Glucose 199 H, Calcium 8.7, Total Bilirubin 0.4, AST 26, ALT 16, Alkaline Phosphatase 81, Total Protein 6.8, Albumin 3.9, Globulin 2.9, Albumin/Globulin Ratio 1.3, Lipase 74, HCV Ab PAOLO w/Rflx PCR Qn Negative, HIV Ag/Ab Combo Qual Negative 10/13/24 19:25: Lactate 0.9 10/14/24 06:29: WBC 12.9 H D, RBC 4.51, Hgb 11.7 L, Hct 37.6, MCV 83.4, MCH 25.9 L, MCHC 31.1 L, RDW 14.4, Plt Count 267, MPV 12.3 H, Neut % (Auto) 80.4 H, Lymph % (Auto) 12.5, [place] % (Auto) 5.5, Eos % (Auto) 1.0, Baso % (Auto) 0.3, Neut # (Auto) 10.4 H, Lymph # (Auto) 1.6, [place] # (Auto) 0.7, Eos # (Auto) 0.1, Baso # (Auto) 0.0, Sodium 137, Potassium 3.7, Chloride 104, Carbon Dioxide 31 H, Anion Gap 5.7, BUN 13 D, Creatinine 0.70, Estimated Creat Clear 46, Estimated GFR 80, Est GFR ( Amer) 97, Glucose 88 D, Calcium 8.2 L, Magnesium 1.9, Total Bilirubin 0.5, AST 55 H D, ALT 31 D, Alkaline Phosphatase 83, Total Protein 6.2 L, Albumin 3.4 L D, Globulin 2.8, Albumin/Globulin Ratio 1.2 I & O for Last 24 hours: Intake & Output 10/11/24 10/12/24 10/13/24 10/14/24 23:59 23:59 23:59 23:59 Intake Total 1081 / 1081 Output Total 0 / 0 0 / 0 Balance 0 721 1081 / 1081 Weight 63.73 kg 65.408 kg Results Data Completed and Pending Labs on day of discharge: Labs from last 24 hours 10/14/24 10/13/24 10/13/24 06:29 19:25 11:45 WBC 12.9 H D 17.8 H RBC 4.51 4.63 Hgb 11.7 L 12.4 Hct 37.6 38.8 MCV 83.4 83.8 MCH 25.9 L 26.8 L MCHC 31.1 L 32.0 RDW 14.4 14.2 Plt Count 267 287 MPV 12.3 H 12.0 H Neut % (Auto) 80.4 H 89.8 H Lymph % (Auto) 12.5 5.5 L [place] % (Auto) 5.5 3.7 Eos % (Auto) 1.0 0.2 Baso % (Auto) 0.3 0.3 Neut # (Auto) 10.4 H 16.0 H Lymph # (Auto) 1.6 1.0 [place] # (Auto) 0.7 0.7 Eos # (Auto) 0.1 0.0 Baso # (Auto) 0.0 0.1 Total Counted 100 Neutrophils % (Manual) 82 H Band Neutrophils % 7.0 Lymphocytes % (Manual) 9 L Monocytes % (Manual) 2 Platelet Estimate Normal RBC Morphology Normal Sodium 137 136 Potassium 3.7 3.8 Chloride 104 100 Carbon Dioxide 31 H 31 H Anion Gap 5.7 8.8 BUN 13 D 18 H Creatinine 0.70 0.70 Estimated Creat Clear 46 46 Estimated GFR 80 80 Est GFR ( Amer) 97 97 Glucose 88 D 199 H Lactate 0.9 Calcium 8.2 L 8.7 Magnesium 1.9 Total Bilirubin 0.5 0.4 AST 55 H D 26 ALT 31 D 16 Alkaline Phosphatase 83 81 Total Protein 6.2 L 6.8 Albumin 3.4 L D 3.9 Globulin 2.8 2.9 Albumin/Globulin Ratio 1.2 1.3 Lipase 74 Urine Color Urine Appearance Urine pH Ur Specific [place] Urine Protein Urine Glucose (UA) Urine Ketones Urine Blood Urine Nitrate Urine Bilirubin Urine Urobilinogen Ur Leukocyte Esterase Urine RBC Urine WBC Ur Squamous Epith Cells Urine Bacteria HCV Ab PAOLO w/Rflx PCR Qn Negative HIV Ag/Ab Combo Qual Negative 10/13/24 11:26 WBC RBC Hgb Hct MCV MCH MCHC RDW Plt Count MPV Neut % (Auto) Lymph % (Auto) [place] % (Auto) Eos % (Auto) Baso % (Auto) Neut # (Auto) Lymph # (Auto) [place] # (Auto) Eos # (Auto) Baso # (Auto) Total Counted Neutrophils % (Manual) Band Neutrophils % Lymphocytes % (Manual) Monocytes % (Manual) Platelet Estimate RBC Morphology Sodium Potassium Chloride Carbon Dioxide Anion Gap BUN Creatinine Estimated Creat Clear Estimated GFR Est GFR ( Amer) Glucose Lactate Calcium Magnesium Total Bilirubin AST ALT Alkaline Phosphatase Total Protein Albumin Globulin Albumin/Globulin Ratio Lipase Urine Color Yellow Urine Appearance Clear Urine pH 6.5 Ur Specific [place] 1.020 Urine Protein Trace Urine Glucose (UA) Negative Urine Ketones Negative Urine Blood Negative Urine Nitrate Negative Urine Bilirubin Negative Urine Urobilinogen 0.2 Ur Leukocyte Esterase Negative Urine RBC None Urine WBC 3-5 Ur Squamous Epith Cells 10-20 Urine Bacteria 2+ HCV Ab PAOLO w/Rflx PCR Qn HIV Ag/Ab Combo Qual DS: Diagnosis Discharge Diagnosis (1) Abdominal pain, LLQ: Status: Acute Code(s): R10.32 - Left lower quadrant pain (2) Colitis: Status: Acute Code(s): K52.9 - Noninfective gastroenteritis and colitis, unspecified Meds Home Medications and Allergies Home Medications ?Medication ?Instructions ?Recorded ?Confirmed ?Type apixaban 2.5 mg tablet (Eliquis) 2.5 mg PO BID 10/13/24 10/13/24 History aspirin 81 mg tablet,delayed 81 mg PO DAILY 10/13/24 10/13/24 History release benazepril 20 mg tablet 20 mg PO BID 10/13/24 10/13/24 History estradiol 0.1 mg/24 hr semiweekly 0.1 mg transdermal DIRECTED 10/13/24 10/14/24 History transdermal patch (Minivelle) meclizine 25 mg chewable tablet 25 mg PO TIDP PRN Vertigo 10/13/24 10/14/24 History oxybutynin chloride 10 mg 10 mg PO DAILY 10/13/24 10/13/24 History tablet,extended release 24 hr rabeprazole 20 mg tablet,delayed 20 mg PO DAILY 10/13/24 10/13/24 History release ciprofloxacin HCl 500 mg tablet 500 mg PO BID 9 days #18 tabs 10/14/24 Rx (Cipro) metronidazole 500 mg tablet 500 mg PO BID 9 days #18 tabs 10/14/24 Rx New Prescriptions to Start Prescriptions: ciprofloxacin HCl [Cipro] Bryson Cabezas metronidazole Bryson Cabezas Allergies Allergy/AdvReac Type Severity Reaction Status Date / Time No Known Allergies Allergy Verified 10/13/24 11:46 Discharge Plan Disposition Patient Disposition: Home, Self-Care Condition: Fair Follow up Plan Follow up with: Elif Ruvalcaba MD [Primary Care Provider] - Enter time for follow up (Physicans office will call patient to schedule appointment. ) Prescriptions/Medication Reconciliation: New ciprofloxacin HCl [Cipro] 500 mg tablet 500 mg PO BID 9 Days Qty: 18 0RF metronidazole 500 mg tablet 500 mg PO BID 9 Days Qty: 18 0RF Continued rabeprazole 20 mg tablet,delayed release (DR/EC) 20 mg PO DAILY oxybutynin chloride 10 mg tablet extended release 24hr 10 mg PO DAILY Patient Comments: TAKE ONE TABLET BY MOUTH DAILY estradiol [Minivelle] 0.1 mg/24 hr patch semiweekly 0.1 mg transdermal DIRECTED Patient Comments: APPLY ONE (1) PATCH TWICE A WEEK BY TRANSDERMAL ROUTE DIRECTED. Rx Instructions: 1 patch twice a wk aspirin 81 mg Tablet,Delayed Release (Dr/Ec) 81 mg PO DAILY benazepril 20 mg tablet 20 mg PO BID Patient Comments: TAKE ONE TABLET BY MOUTH TWICE DAILY (direction CHANGE) meclizine 25 mg tablet,chewable 25 mg PO TIDP PRN (Reason: Vertigo) Patient Comments: TAKE ONE TABLET BY MOUTH THREE TIMES DAILY NEEDED FOR VERTIGO Eliquis 2.5 mg tablet 2.5 mg PO BID Patient Comments: TAKE 1 TABLET BY MOUTH TWICE DAILY Problem Reconciliation Problems Reviewed?: Yes Patient Discharge Instructions Patient Instructions: DI for Colitis Print Language: Italian Providers Primary Care Provider: Elif Ruvalcaba Admit Provider: Bryson Cabezas Attending Provider: Bryson Cabezas
--- NOTE | 2024-10-16 10:17 | SW/DCPLANNER ---
Phoned patient x2. No answer and left message with a call back number. Kostas Cole
== END 2024-10-14 13:30 | disposition home or self-care (01) ==
LOC: ER 11:48 → 2ND 18:25
PROVIDERS: Admitting Provider Student in an Organized Health Care Education/Training Program; Emergency Provider Emergency Medicine; PCP Internal Medicine; Visit Provider Student in an Organized Health Care Education/Training Program
DX: R10.32 Left lower quadrant pain (principal); I10 Essential (primary) hypertension; U09.9 Post COVID-19 condition, unspecified; K52.9 Noninfective gastroenteritis and colitis, unspecified; Z86.718 Personal history of other venous thrombosis and embolism; Z90.49 Acquired absence of other specified parts of digestive tract; Z79.899 Other long term (current) drug therapy; Z79.82 Long term (current) use of aspirin; Z79.01 Long term (current) use of anticoagulants; Z90.79 Acquired absence of other genital organ(s)
CPT/HCPCS: 36415; 74174; 74177; 80053; 81001; 83605; 83690; 83735; 85007; 85025; 85027; 86803; 87086; 87389; 93005; 99285; G0378; J0131; J2270; J2405; J2543; J7120; Q9967